=== PATIENT | female | born 1980 | race American Indian/Alaskan Native ===

== ENCOUNTER 2019-12-03 12:24 | Emergency (ER) | payer SELFPAY ==
--- NOTE | 2019-12-03 12:47 | EDM.PDOC ---
ED HPI GENERAL MEDICAL PROBLEM - General Chief Complaint: Respiratory Problem Stated Complaint: CHEST CONGESTION Time Seen by Provider: 12/03/19 12:28 Source of Information: Reports: Patient History Limitations: Reports: No Limitations - History of Present Illness INITIAL COMMENTS - FREE TEXT/NARRATIVE: HISTORY AND PHYSICAL: History of present illness: Patient is a 39-year-old female who presents to the emergency room today with complaints of chronic cough and chest congestion. She states over the past several years she has had these symptoms but feels it is been worse within the last 2 to 3 months. She states she does not have a primary care provider and is failed to be seen for the symptoms. She did make an appointment with a primary care provider but is not able to be seen for a few weeks. She states she is a smoker and initially thought the cough was related to that. Over the past few months she has had some pain to her right posterior shoulder blade and neck which is only noticeable with movement of her neck or coughing/deep breathing. She states over the past several days she has had some sinus pressure. Her significant other who has had these same symptoms was recently tested and treated for pneumonia and strep throat. Patient denies any fever, chills, headache, change in vision, syncope or near syncope. Denies any chest pain, abdominal pain, nausea, vomiting, diarrhea, constipation or dysuria. Patient has been eating and drinking appropriately. Review of systems: As per history of present illness and below otherwise all systems reviewed and negative. Past medical history: As per history of present illness and as reviewed below otherwise noncontributory. Surgical history: As per history of present illness and as reviewed below otherwise noncontributory. Social history: See social history for further information Family history: As per history of present illness and as reviewed below otherwise noncontributory. Physical exam: General: Well-developed and well-nourished 39-year-old female. Alert and oriented. Nontoxic-appearing and in no acute distress. HEENT: Atraumatic, normocephalic, pupils equal and reactive bilaterally, negative for conjunctival pallor or scleral icterus, mucous membranes moist, TMs normal bilaterally, throat mildly erythematous without exudate or soft tissue swelling, neck supple, trachea midline. Mild lymphadenopathy bilaterally , no tenderness. No drooling or trismus noted. No meningeal signs. No hot potato voice noted. Lungs: Clear to auscultation, breath sounds equal bilaterally, chest nontender. Dry nonproductive cough is noted. Heart: S1S2, regular rate and rhythm without overt murmur Abdomen: Soft, nondistended, nontender. Negative for masses or hepatosplenomegaly. Negative for costovertebral tenderness. Skin: Intact, warm, dry. No lesions or rashes noted. Extremities: Atraumatic, moves all extremities per self without difficulty or deficits, negative for cords or calf pain. Neurovascular unremarkable. Neuro: Awake, alert, oriented. Cranial nerves II through XII unremarkable. Cerebellum unremarkable. Motor and sensory unremarkable throughout. Exam nonfocal. Notes: The neck pain is prevalent when moving her neck, coughing, or taking in deep breathes. She states this pain is not aggravated by physical exertion. EKG shows normal sinus rhythm with rate of 76, no abnormalities noted. Chest x- ray shows slight atelectasis; no evidence of pneumonia. Due to longevity of symptoms I will treat with antibiotic and provide with inhaler. She states she does have a follow-up appointment next week to establish care with her primary care provider. Supportive care measures were reviewed and discussed. Voices understanding and is agreeable to plan of care. Denies any further questions or concerns at this time. Diagnostics: EKG, CXR, Strep, Influenza Therapeutics: None Prescription: Pro-AirRafita Impression: Bronchitis Plan: 1. Stop smoking 2. You can alternate Tylenol and ibuprofen for pain management. 3. Take your medications as directed. Today's EKG, chest x-ray, strep screening and influenza screening were within normal limits. Please keep your appointment with primary care provider so you can establish with a provider in the community. 4. Return to the ED as needed and as discussed. Definitive disposition and diagnosis as appropriate pending reevaluation and review of above. right side of neck Pain Score (Numeric/FACES): 8 - Related Data Allergies Allergy/AdvReac Type Severity Reaction Status Date / Time aspartame Allergy Hives Verified 12/03/19 12:49 erythromycin base Allergy Hives Verified 12/03/19 12:49 Home Meds: Home Meds Albuterol [Ventolin HFA] 2 puff INH Q4HR PRN #1 inhaler 12/03/19 [Rx] Doxycycline [Vibramycin] 100 mg PO BID 7 Days #14 cap 12/03/19 [Rx] ED ROS GENERAL - Review of Systems Review Of Systems: Comprehensive ROS is negative, except as noted in HPI. ED EXAM, GENERAL - Physical Exam Exam: See Below (See dictation) Course - Vital Signs Last Recorded V/S: Last Vital Signs Temp 98 F 12/03/19 12:49 Pulse 89 12/03/19 12:49 Resp 18 12/03/19 12:49 BP 149/80 H 12/03/19 12:49 Pulse Ox 97 12/03/19 12:49 - Orders/Labs/Meds Orders: Active Orders 24 hr Category Date Time Status EKG Documentation Completion [RC] STAT Care 12/03/19 12:54 Active STREP SCRN A RAPID W CULT CONF [RM] Stat Lab 12/03/19 13:03 Results Isolation [COMM] Routine Oth 12/03/19 12:55 Active Departure - Departure Time of Disposition: 13:41 Disposition: Home, Self-Care 01 Clinical Impression: Bronchitis - Discharge Information Prescriptions: Albuterol [Ventolin HFA] 2 puff INH Q4HR PRN #1 inhaler PRN Reason: Dyspnea Doxycycline [Vibramycin] 100 mg PO BID 7 Days #14 cap Instructions: Upper Respiratory Infection, Adult Referrals: PCP,None [Primary Care Provider] - Forms: ED Department Discharge Additional Instructions: The following information is given to patients seen in the emergency department who are being discharged to home. This information is to outline your options for follow-up care. We provide all patients seen in our emergency department with a follow-up referral. The need for follow-up, as well as the timing and circumstances, are variable depending upon the specifics of your emergency department visit. If you don't have a primary care physician on staff, we will provide you with a referral. We always advise you to contact your personal physician following an emergency department visit to inform them of the circumstance of the visit and for follow-up with them and/or the need for any referrals to a consulting specialist. The emergency department will also refer you to a specialist when appropriate. This referral assures that you have the opportunity for follow-up care with a specialist. All of these measure are taken in an effort to provide you with optimal care, which includes your follow-up. Under all circumstances we always encourage you to contact your private physician who remains a resource for coordinating your care. When calling for follow-up care, please make the office aware that this follow-up is from your recent emergency room visit. If for any reason you are refused follow-up, please contact the [facility] Emergency Department at and asked to speak to the emergency department charge nurse. [facility] [address] [place] [address] [facility] [address] [place] [address] 1. Increase oral fluids. 2. Avoid constricting clothing. Wear cotton underwear and loose undergarments. 3. Avoid bubble baths at this time; may resume once antibiotics are completed. 4. May alternate Tylenol and/or ibuprofen. 5. Follow-up with your welder fabricator as we discussed. Return to the ED as needed and as discussed. Sepsis Event Note - Focused Exam Vital Signs: Vital Signs Temp Pulse Resp BP Pulse Ox 12/03/19 12:49 98 F 89 18 149/80 H 97 Date Exam was Performed: 12/03/19 Time Exam was Performed: 13:56 - My Orders Last 24 Hours: My Active Orders 12/03/19 12:54 EKG Documentation Completion [RC] STAT 12/03/19 12:55 Isolation [COMM] Routine 12/03/19 13:03 STREP SCRN A RAPID W CULT CONF [RM] Stat - Assessment/Plan Last 24 Hours: My Active Orders 12/03/19 12:54 EKG Documentation Completion [RC] STAT 12/03/19 12:55 Isolation [COMM] Routine 12/03/19 13:03 STREP SCRN A RAPID W CULT CONF [RM] Stat
--- NOTE | 2019-12-03 13:53 | CR ---
Chest: 2 views of the chest were obtained. Comparison: No prior chest imaging. Heart size and mediastinum are normal. Lungs show no acute parenchymal change. Slight atelectasis noted within the right midlung and left lower lung. Lucency along left lateral chest wall is seen believed to be artifact. Bony structures are within normal limits. Impression: 1. Slight atelectasis. 2. Nothing acute is otherwise seen. Diagnostic code #2 This report was dictated in MDT
== END 2019-12-03 14:04 | disposition home or self-care (01) ==
LOC: MW.ED 12:24
DX: J40 Bronchitis, not specified as acute or chronic (principal); Z88.8 Allergy status to other drugs, medicaments and biological substances; Z88.1 Allergy status to other antibiotic agents
CPT/HCPCS: 71046; 71046-26; 87081; 87804; 87880-QW; 93005; 99283; 99285-25